=== PATIENT | male | born 1965 | race Caucasian/White ===

== ENCOUNTER → 2016-11-14 | Day surgery (SDC) | payer OTHER ==
[~2016-11-14] MED LIST: ALLEGRA PO; ASPIRIN PO; B12 PO; BACTRIM DS TABL1 TAB; BACTROBAN15 GM; CELEBREX PO; CO Q10 PO; ENBREL50 MG/ML IM; FISH OIL 1,0001 CAP PO; FLONASE 0.05% N16 G1; GABAPENTIN300 M2 PO; GLUCOPHAGE XR500 MG; ISONIAZID300 MG PO; LIPITOR; LIPITOR20 MG PO; LISINOPRIL; METFORMIN PO; NIACIN; NORVASC PO; NORVASC10 MG PO; PHENERGAN PO; SIMCOR PO; TRAMADOL HCL50 M1 PO; VICODIN 5/500 T1 TAB PO; VIT B-6 PO; [UNRECOGNIZED DRUG - OTHER]
--- NOTE | ~2016-11-14 | OR ---
Unit #: [id number] #: [id number] Patient: CELESTE IVY [id number] [address] [address] [id number] O MR#: [id number] NAME: CELESTE IVY ROOM: Date of Procedure: 11/14/2016 Admission Date: 11/14/2016 Surgeon: Andrea Patino M.D. : 1965 Attending Physician: Andrea Patino M.D. OPERATIVE REPORT PREOPERATIVE DIAGNOSES 1. Neck pain. 2. Cervical degenerative disk and spine disease. 3. Cervical radiculopathy. POSTOPERATIVE DIAGNOSES 1. Neck pain. 2. Cervical degenerative disk and spine disease. 3. Cervical radiculopathy. PROCEDURE PERFORMED Cervical epidural steroid injection with intravenous sedation and fluoroscopic guidance for needle localization. INDICATIONS FOR PROCEDURE The patient is a 51-year-old male with neck and intrascapular pain, bilateral upper extremity tingling and discomfort. It is not settle with conservative treatment. Workup demonstrated multilevel multifactorial degenerative disk and spine disease, most significant at C6-C7 with neuroforaminal encroachment. Impression is that it is cervical radiculitis and is not settle conservative measures. Plan is for trial of epidural steroids. Risks and benefits of all which have been reviewed. DESCRIPTION OF PROCEDURE The patient was placed in a seated position. Standard monitors were applied. Sterile prep and drape of the cervical area was performed. The skin then at the C6 level was localized with 1% lidocaine. An 18-gauge Drivrtead needle was then advanced via hanging drop technique and fluoroscopic guidance in toward the epidural space. After confirming proper positioning with fluoroscopy and radiographic contrast, 80 mg of Depo-Medrol and 4 mL of 0.125% bupivacaine were deposited. The patient tolerated the procedure otherwise well and was discharged to recovery room in stable condition. Dictated by... Ruddy Castro/kyree TD: 11/15/2016 00:11 Unit #: [id number] #: [id number] Patient: CELESTE IVY JOB #: [id number] OPERATIVE REPORT X Andrea Patino MD X PROCEDURE OPERATIVE NOTE
== END | disposition home or self-care (01) ==
LOC: CCSC 08:48
DX: M50.123 Cervical disc disorder at C6-C7 level with radiculopathy (principal); I10 Essential (primary) hypertension
CPT/HCPCS: J1040; J2250

== ENCOUNTER → 2016-12-05 | Day surgery (SDC) | payer OTHER ==
--- NOTE | ~2016-12-05 | OR ---
Unit #: [id number] #: [id number] Patient: CELESTE IVY [id number] [address] [address] [id number] O MR#: [id number] NAME: CELESTE IVY ROOM: Date of Procedure: 12/05/2016 Admission Date: 12/05/2016 Surgeon: Andrea Patino M.D. : 1965 Attending Physician: Andrea Patino M.D. Primary Care Physician: Ale Daniels M.D. OPERATIVE REPORT JOB NOTE: CC : [facility] PREOPERATIVE DIAGNOSES 1. Neck pain. 2. Cervical radiculopathy. 3. Degenerative cervical disk disease. POSTOPERATIVE DIAGNOSES 1. Neck pain. 2. Cervical radiculopathy. 3. Degenerative cervical disk disease. PROCEDURE PERFORMED Cervical epidural steroid injection with intravenous sedation and fluoroscopic guidance for needle localization. INDICATIONS FOR PROCEDURE The patient is a 51-year-old male with previously mentioned diagnosis, initial epidural steroid injection about 2 weeks ago, which resulted in fairly significant improvement in his symptom complex and just returned last there too. The patient has good initial partial response. Because of his pathology and symptomatology, we are going to proceed with a repeat epidural steroid injection today. DESCRIPTION OF PROCEDURE The patient was placed in the seated position. Standard monitors were applied. A 2 mg of Versed were given for sedation and anxiolysis, which were adequate. Vital signs remained stable. Sterile prep and drape then of the cervical area was performed. The skin then at the C5-C6 level was localized with 1% lidocaine. An 18-gauge Hustead needle was then advanced via hanging drop technique and fluoroscopic guidance in toward the epidural space. After confirming proper positioning with fluoroscopy and radiographic contrast, 80 mg of Depo-Medrol and 2 mL of 0.125% bupivacaine were deposited. The patient tolerated the procedure otherwise well and was discharged to the recovery room in stable condition. Dictated by... Andrea Patino M.D. P/modl Unit #: [id number] #: [id number] Patient: CELESTE IVY TD: 12/06/2016 02:03 JOB #: [id number] OPERATIVE REPORT Page 1 of 1 X Andrea Patino MD X PROCEDURE OPERATIVE NOTE
== END | disposition home or self-care (01) ==
LOC: CCSC 08:52
DX: M50.10 Cervical disc disorder with radiculopathy, unspecified cervical region (principal); I10 Essential (primary) hypertension; E78.00 Pure hypercholesterolemia, unspecified
CPT/HCPCS: J1040; J2250

== ENCOUNTER → 2016-12-26 | Day surgery (SDC) | payer OTHER ==
--- NOTE | ~2016-12-26 | OR ---
Unit #: [id number] #: [id number] Patient: CELESTE IVY [id number] [address] [address] [id number] O MR#: [id number] NAME: CELESTE IVY ROOM: Date of Procedure: 12/26/2016 Admission Date: 12/26/2016 Surgeon: Andrea Patino M.D. : 1965 Attending Physician: Andrea Patino M.D. Referring Physician: Andrea Patino M.D. Primary Care Physician: Ale Daniels M.D. OPERATIVE REPORT JOB NOTE: CC: [facility] PREOPERATIVE DIAGNOSES Neck pain, cervical radiculopathy, degenerative cervical disk disease. POSTOPERATIVE DIAGNOSES Neck pain, cervical radiculopathy, degenerative cervical disk disease. PROCEDURE PERFORMED Cervical epidural steroid injection with intravenous sedation and fluoroscopic guidance for needle localization. INDICATIONS FOR PROCEDURE The patient is a 51-year-old male with significant neck, intrascapular pain, and bilateral upper extremity radicular type pain. He failed to settle with conservative measures. Workup demonstrated moderate neuroforaminal and central stenosis at C5-C6 and C6-C7 osteophytic and degenerative disease. The patient has had 2 epidural steroid injections done over the last several weeks. They have given additive significant improvement in his pain. better able to work and sleeping a lot better response so far. Based on his additive response, his continued symptoms, and available treatment options, we are going to proceed with a final epidural steroid injection. DESCRIPTION OF PROCEDURE The patient was placed in the seated position. Standard monitors were applied. 2 mg of Versed were given for sedation and anxiolysis, which were adequate. Vital signs remained stable. Sterile prep and drape then the cervical area was performed. The skin at the C6 level was localized with 1% lidocaine. An 18-gauge [employer] needle was then advanced via hanging drop technique and fluoroscopic guidance in toward the epidural space. After confirming proper positioning with fluoroscopy and radiographic contrast, 80 mg of Depo-Medrol and 2 mL of 0.25% bupivacaine were deposited. The patient tolerated the procedure otherwise well and was discharged to recovery room in stable condition. Dictated by... Andrea Patino M.D. [facility] Unit #: [id number] #: [id number] Patient: CELESTE IVY TD: 12/27/2016 01:07 JOB #: [id number] OPERATIVE REPORT Page 1 of 1 X Andrea Patino MD X PROCEDURE OPERATIVE NOTE
== END | disposition home or self-care (01) ==
LOC: CCSC 08:43
PROVIDERS: Pain Medicine Pain Medicine
PROC: 3E0S3BZ Introduction of Anesthetic Agent into Epidural Space, Percutaneous Approach (ICD-10-PCS; 2016-12-26)
PROC: 3E0S33Z Introduction of Anti-inflammatory into Epidural Space, Percutaneous Approach (ICD-10-PCS; principal; 2016-12-26 09:30)
DX: M50.123 Cervical disc disorder at C6-C7 level with radiculopathy (principal); M48.02 Spinal stenosis, cervical region; I10 Essential (primary) hypertension; M25.78 Osteophyte, vertebrae
CPT/HCPCS: J1040; J2250